=== PATIENT | female | born 1985 | race Caucasian/White ===

== ENCOUNTER 2019-11-29 09:16 | Emergency (ER) | payer OTHER, SELFPAY ==
[2019-11-29 09:23] VITALS: BP 116/70; PULSE 105; RESP 16; TEMP 38.2; O2SAT 100
--- NOTE | 2019-11-29 09:50 | ED.URI ---
HPI - URI/Sore Throat General Chief Complaint: Upper Respiratory Infection Stated Complaint: FEVER/CHILLS/CHEST CONGESTION/ROCA/SOB Time Seen by Provider: 11/29/19 09:45 Source: patient and RN notes reviewed Mode of arrival: ambulatory Limitations: no limitations History of Present Illness HPI Narrative: 34-year-old female presents with concern for fever, cough, productive cough, nasal congestion, mild sore throat, general malaise for 4 days. Reports taking [id number] medications for relief. MD elicited complaint: cough Related Data Allergies Allergy/AdvReac Type Severity Reaction Status Date / Time peanut oil Allergy Severe anaphylaxis Verified 10/05/18 15:12 peas Allergy Mild SCRATCHY Verified 09/13/18 13:41 THROAT egg Allergy Unknown Verified 05/16/18 14:29 measles, mumps, and rubella Allergy Unknown unk Verified 10/05/18 15:12 vaccine peanut Allergy Unknown Asthma Verified 10/15/17 21:20 Sulfa (Sulfonamide Allergy Unknown Skin Verified 10/15/17 21:20 Antibiotics) Reaction NUTS Allergy Severe Anaphylactic Uncoded 09/13/18 13:38 Shock Lentils Allergy Mild ITCHING Uncoded 09/13/18 13:38 THROAT MMR VACCINE Allergy Unknown Unknown Uncoded 09/13/18 13:41 Review of Systems Review of Systems: Narrative: CONSTITUTIONAL: Reports fatigue, malaise, chills, sweats, or fever. EYES: Denies visual changes, redness, or discharge. ENT: Reports rhinorrhea, congestion, sore throat. Denies sinus pain, otalgia. CARDIOVASCULAR: Denies chest pain, palpitations, or edema. RESPIRATORY: Reports productive cough. Denies dyspnea. GASTROINTESTINAL: Denies abdominal pain, nausea, vomiting, diarrhea SKIN: Denies rash or itching. MUSCULOSKELETAL: Reports myalgia. NEUROLOGIC: Reports headache. All systems reviewed & are unremarkable except as noted in HPI and below PMFSH Family History Family History (Updated 05/27/18 @ 09:46 by DOCTOR UNKNOWN) Grandparent Family history of lung cancer Family history of malignant neoplasm of brain Sibling Family history of mental disorder Father Family history of cardiovascular disease Other Family history of malignant neoplasm of breast Social History Social History Smoking status: Never smoker Alcohol intake: never Comments At time of signature, agree with nursing past medical, surgical, social and family history. There is no relevant family history pertinent to the presenting complaint Exam Narrative: Exam Narrative: GENERAL: Well-appearing, well-nourished, and in no acute distress. HEAD: Normocephalic EYES: PERRLA, conjunctivae clear ENT: Nares clear, turbinates edematous and erythematous, clear discharge. Mucous membranes moist. TM pearly gould with dull light reflex bilaterally; no tragal tenderness. Oropharynx not erythematous without lesions. Tonsils not enlarged and without exudate, no drooling, no hoarseness, no trismus. NECK: Supple. No lymphadenopathy CHEST: Clear to auscultation, breath sounds equal. No wheezing, rhonchi, rales, or stridor. No respiratory distress, speaks in full sentences. Cough noted HEART: Regular rate and rhythm. No murmur heard. Normal peripheral pulses. SKIN: Warm, dry, no rash. NEURO: Alert and oriented x3. PSYCH: Normal mood and affect Course Course Emergency Course: Patient is aware of diagnosis, understands and agrees to treatment plan. Anticipatory guidance given. Patient agrees to follow-up as directed and is aware of reasons to seek care at the emergency department. Portions of this record may have been created with voice recognition software Vital Signs Vital signs: Vital Signs Temperature 100.7 F H 11/29/19 09:23 Pulse Rate 105 H 11/29/19 09:23 Respiratory Rate 16 11/29/19 09:23 Blood Pressure 116/70 11/29/19 09:23 Pulse Oximetry 100 11/29/19 09:23 Temperature 100.7 F H 11/29/19 09:23 Pulse Rate 105 H 11/29/19 09:23 Respiratory Rate 16 11/29/19 09:23 Blood Pressure 116/70 11/29/19 09:23
== END 2019-11-29 10:02 | disposition home or self-care (01) ==
PROVIDERS: Emergency Provider Nurse Practitioner; PCP Family Medicine
DX: R50.9 Fever, unspecified (principal); R05 Cough; J02.9 Acute pharyngitis, unspecified; R53.81 Other malaise; R09.81 Nasal congestion; J45.909 Unspecified asthma, uncomplicated
CPT/HCPCS: 99213; G0463

== ENCOUNTER 2021-12-20 18:54 | Emergency (ER) | payer OTHER, SELFPAY ==
[2021-12-20] VITALS (42 sets, daily range): BP systolic 91–144; BP diastolic 49–98; PULSE 57–108; RESP 9–28; TEMP 37; O2SAT 95–100
--- NOTE | 2021-12-20 19:11 | ED.ALLEREA ---
HPI - Allergic Reaction General Chief complaint: Allergic Reaction Stated complaint: allergic reaction Time Seen by Provider: 12/20/21 19:04 Source: RN notes reviewed History of Present Illness HPI narrative: Patient presents emergency room from home for allergic reaction. Patient that she is allergic to peanuts and ate a grilled cheese sandwich to have peanut butter on it approximately 15 minutes ago. She states that she began to feel like her throat was itching was rhinorrhea and a feeling of shortness of breath and came to the emergency department she states she has an EpiPen but she did not take it she denies any fevers or chills chest pain or abdominal pain denies any other symptoms at this time Related Data Allergies Allergy/AdvReac Type Severity Reaction Status Date / Time peanut oil Allergy Severe anaphylaxis Verified 10/05/18 15:12 peas Allergy Mild SCRATCHY Verified 09/13/18 13:41 THROAT egg Allergy Unknown Verified 05/16/18 14:29 measles, mumps, and rubella Allergy Unknown unk Verified 10/05/18 15:12 vaccine peanut Allergy Unknown Asthma Verified 10/15/17 21:20 Sulfa (Sulfonamide Allergy Unknown Skin Verified 10/15/17 21:20 Antibiotics) Reaction NUTS Allergy Severe Anaphylactic Uncoded 09/13/18 13:38 Shock Lentils Allergy Mild ITCHING Uncoded 09/13/18 13:38 THROAT MMR VACCINE Allergy Unknown Unknown Uncoded 09/13/18 13:41 Review of Systems Review of Systems: Gen.: Denies fevers or chills ENT: Feeling of throat itching Respiratory: Ports shortness of breath CV: Denies chest pain or palpitations GI: Denies abdominal pain nausea, emesis or diarrhea Musculoskeletal: Denies back pain or muscle pain Neuro: Denies numbness, tingling, weakness or focal weakness Skin: Denies rash Except as documented, all other systems reviewed and negative PMF Past Medical History Medical History (Updated 12/21/21 @ 00:36 by Dickson Loya DO) Moderate persistent asthma, uncomplicated Family History Family History (Updated 05/27/18 @ 09:46 by DOCTOR UNKNOWN) Grandparent Family history of lung cancer Family history of malignant neoplasm of brain Sibling Family history of mental disorder Father Family history of cardiovascular disease Other Family history of malignant neoplasm of breast Social History Social History Smoking status: Never smoker Alcohol intake: never Exam Narrative: APPEARANCE: Anxious no acute distress, nontoxic, resting in bed EYES: EOMI HEENT: Normocephalic, atraumatic, clear rhinorrhea bilateral naris oromucosa moist no erythema or exudate posterior pharynx tolerating own secretions voice normal RESPIRATORY: No respiratory distress Clear to auscultation bilaterally with no rhonchi wheezing or rales. CARDIOVASCULAR: Regular rate and rhythm without murmurs rubs or gallops. ABDOMINAL: Soft, nontender, nondistended, no rebound or guarding MUSCULOSKELETAl: Moves all extremities. No clubbing, cyanosis or edema. NEURO: Awake and alert. Following commands, speech normal, no focal deficits SKIN:: Warm, dry. No rashes lesions or abrasions PSYCHIATRIC: Anxious in appearance Course Course Emergency Course: Patient is feeling much better has been monitoring emergency department for 5 hours will discharge at this time Discussed with patient results of workup and diagnosis. Discussed need for follow-up with primary care, proper use of medication, and reasons to return to the emergency department. Patient understands and agrees to current treatment plan patient states she has an EpiPen at home Vital Signs Vital signs: Vital Signs Temperature 98.6 F 12/20/21 18:59 Pulse Rate 103 H 12/20/21 18:59 Respiratory Rate 14 12/20/21 18:59 Blood Pressure 144/98 H 12/20/21 18:59 Pulse Oximetry 100 12/20/21 18:59 Temperature 98.6 F 12/20/21 18:59 Pulse Rate 71 12/20/21 22:16 Respiratory Rate 21 H
[2021-12-20] MEDS: EPINEPHrine HCL INJ 1 MG/ML AMPUL 0.3 MG IM (19:13)
[2021-12-20] MEDS: methylPREDNISolone SOD SUCC 125 MG VIAL IV PUSH (19:13)
[2021-12-20] MEDS: diphenhydrAMINE HCl INJ 50 MG/ML VIAL 25 MG IV PUSH (19:14)
[2021-12-20] MEDS: FAMOTIDINE 20 MG/2 ML VIAL IV PUSH (19:14)
[2021-12-20] MEDS: ONDANSETRON INJ 4 MG/2 ML VIAL IV PUSH (19:18)
[2021-12-21] VITALS: PULSE 60; RESP 18; O2SAT 99
[2021-12-21 00:01] VITALS: BP 110/72; PULSE 65; RESP 16; O2SAT 99
[2021-12-21 00:16] VITALS: BP 112/77; PULSE 73; RESP 18; O2SAT 99
[2021-12-21 00:30] VITALS: PULSE 72; RESP 14; O2SAT 99
[2021-12-21 00:31] VITALS: BP 116/71; PULSE 68; RESP 16; O2SAT 99
[2021-12-21 00:46] VITALS: BP 109/55; PULSE 64; RESP 17; O2SAT 99
== END 2021-12-21 00:55 | disposition home or self-care (01) ==
PROVIDERS: Emergency Provider Emergency Medicine; PCP Internal Medicine
DX: T78.1XXA Other adverse food reactions, not elsewhere classified, initial encounter (principal); R06.02 Shortness of breath; J34.89 Other specified disorders of nose and nasal sinuses; R09.89 Other specified symptoms and signs involving the circulatory and respiratory systems; J45.40 Moderate persistent asthma, uncomplicated; Z91.010 Allergy to peanuts
CPT/HCPCS: 96372; 96374; 96375; 99284; J0171; J1200; J2405; J2930

== ENCOUNTER 2024-05-03 08:01 | Emergency (ER) | payer BC, SELFPAY ==
--- NOTE | 2024-05-03 08:04 | ED.ABDPAIN ---
HPI - Abdominal Pain General Stated Complaint: ABD PAIN Time Seen by Provider: 05/03/24 08:14 Source: patient and RN notes reviewed Mode of arrival: ambulatory Limitations: no limitations History of Present Illness HPI narrative: 38-year-old female presents concern for bilateral lower abdominal pain that started yesterday morning. Reports that worsened overnight. She reports pain worsens when she moves in certain ways and when she walks. She reports she has had small amount of diarrhea. Her last normal bowel movement was yesterday. She is not vomiting but is nauseated. She denies urine frequency, urgency, flank pain. Her last menstrual period was 3 weeks ago. She denies body aches, chills, sweats. Reports low-grade temperature MD elicited complaint: abdominal pain Related Data Allergies Allergy/AdvReac Type Severity Reaction Status Date / Time peanut oil Allergy Severe anaphylaxis Verified 05/03/24 08:14 peas Allergy Mild SCRATCHY Verified 05/03/24 08:14 THROAT egg Allergy Unknown Unknown Verified 05/03/24 08:14 measles, mumps, and rubella Allergy Unknown unk Verified 05/03/24 08:14 vaccine peanut Allergy Unknown Asthma Verified 05/03/24 08:14 Sulfa (Sulfonamide Allergy Unknown Skin Verified 05/03/24 08:14 Antibiotics) Reaction NUTS Allergy Severe Anaphylactic Uncoded 05/03/24 08:14 Shock Lentils Allergy Mild ITCHING Uncoded 05/03/24 08:14 THROAT MMR VACCINE Allergy Unknown Unknown Uncoded 05/03/24 08:14 Review of Systems Review of Systems: CONSTITUTIONAL: Denies malaise, chills, sweats. Reports low-grade fever. ENT: Denies rhinorrhea, congestion, sinus pain, otalgia or sore throat. CARDIOVASCULAR: Denies chest pain, palpitations, or edema. RESPIRATORY: Denies cough or dyspnea. GASTROINTESTINAL: Reports abdominal pain, nausea, diarrhea. Denies vomiting GENITOURINARY: Denies dysuria or hematuria. MUSCULOSKELETAL: Denies myalgia. NEUROLOGIC: Denies headache. All systems reviewed & are unremarkable except as noted in HPI and below PMFSH Past Medical History Medical History (Updated 05/03/24 @ 08:26 by Diana Poon NP) Moderate persistent asthma, uncomplicated Family History Family History (Updated 05/27/18 @ 09:46 by DOCTOR UNKNOWN) Grandparent Family history of lung cancer Family history of malignant neoplasm of brain Sibling Family history of mental disorder Father Family history of cardiovascular disease Other Family history of malignant neoplasm of breast Social History Social History Smoking status: Never smoker Alcohol intake: never Comments At time of signature, agree with nursing past medical, surgical, social and family history. There is no relevant family history pertinent to the presenting complaint Exam Narrative: GENERAL: Well-appearing, well-nourished, and in no acute distress. HEAD: Normocephalic, atraumatic. EYES: PERRLA, conjunctivae clear, and EOMI. ENT: Nares clear. Mucous membranes moist. NECK: Supple. No lymphadenopathy CHEST: Speaks in full sentences. No respiratory distress. HEART: Regular rate and rhythm. ABDOMEN: Soft, flat, nondistended. Left lower quadrant tenderness. No guarding, rebound tenderness, or rigidity. No pulsatile masses. Bowel sounds present in all four quadrants. No organomegaly. SKIN: Warm no rash. Clammy skin NEURO: Alert and oriented x3. PSYCH: Normal mood and affect Course Course Emergency Course: Patient is aware of, understands and agrees to be transferred to the emergency room. Anticipatory guidance given. Patient agrees to proceed directly to the emergency department. Portions of this record may have been created with voice recognition software Level of Care: Express Care Visit Vital Signs Vital signs: Reviewed. Transfer Transfered to: [facility] Transportation: Other (private vehicle) Transfer rationale: Abdominal pain Acc
[2024-05-03 08:07] VITALS: BP 121/73; PULSE 96; RESP 16; TEMP 37.4; O2SAT 100
== END 2024-05-03 08:25 | disposition short-term general hospital (02) ==
PROVIDERS: Emergency Provider Nurse Practitioner; PCP Internal Medicine
DX: R10.32 Left lower quadrant pain (principal); J45.909 Unspecified asthma, uncomplicated
CPT/HCPCS: 99212; G0463

== ENCOUNTER 2024-05-03 08:46 | Emergency (ER) | payer BC, SELFPAY ==
--- NOTE | ~2024-05-03 | CT_ITS ---
CT abdomen pelvis w con Ordering provider: Oscar Greer III DO History: 38 years Female with . llq abd pain . Comparison: None. Technique: CT abdomen and pelvis with IV and without oral contrast. Automated exposure control and it erative reconstruction technique were employed. The dose-length product was 297.76 mGy-cm. 100 mL Omn ipaque 350 was given IV. Findings: VISUALIZED LOWER CHEST: Normal. UPPER ABDOMINAL ORGANS: Liver: Hepatomegaly. Gallbladder: Normal. Spleen: Normal. Stomach/duodenum: Normal. Pancreas: Normal. Adrenals: Normal. Kidneys: Normal. PELVIC ORGANS: The bladder is normal. Uterus: Retroverted. Hyperdense area seen in the right ovary s uggestive of ruptured follicle. Hypodense area seen in the left side of the uterus which may be fibro id measuring 1.1 cm. BOWEL AND MESENTERY: Colon: Thickened wall of the sigmoid colon with surrounding fat stranding suggestive of diverticuliti s. Colitis is also possible. Follow-up advised with sigmoidoscopy to exclude a mass. Normal appendix. Small Bowel: Normal. No obstruction. Peritoneum/mesentery: No free air. Fluid is seen in the pelvis No mesenteric lymphadenopathy. RETROPERITONEUM: Normal aorta. . Para-aortic lymph nodes are noted with the largest measures 1.5 cm . MUSCULOSKELETAL: Superficial soft tissues: The superficial soft tissues are normal. Bones: Age appropriate degenerative changes of the spine. IMPRESSION: 1. Diverticulitis versus colitis of the sigmoid colon. Follow-up sigmoidoscopy is advised to exclude a mass. 2. Free fluid seen in the pelvis. 3. Hepatomegaly. 4. Slightly enlarged para-aortic lymph nodes with the largest measuring 1.5 cm. Reviewed, dictated and finalized at location A. IMPRESSION: 1. Diverticulitis versus colitis of the sigmoid colon. Follow-up sigmoidoscopy is advised to exclude a mass. 2. Free fluid seen in the pelvis. 3. Hepatomegaly. 4. Slightly enlarged para-aortic lymph nodes with the largest measuring 1.5 cm .
[2024-05-03 08:55] VITALS: BP 122/79; PULSE 94; RESP 16; TEMP 36.9; O2SAT 100
[2024-05-03 09:14] LABS: Basophils Absolute Auto 0.1 K/mm3 (0.0-0.1); Basophils Percent Auto 0.5 % (0.2-1.2); Eosinophils Absolute Auto 0.2 K/mm3 (0-0.3); Eosinophils Percent Auto 1.5 % (0-4.4); Hematocrit 41.1 % (37.0-47.0); Hemoglobin 14.4 g/dL (12.0-15.0); Immature Granulocyte Absolute 0.03 K/mm3 (0.00-0.031); Immature Granulocyte Percent A 0.2 % (0-0.5); Lymphocytes Absolute Auto 1.38 K/mm3 (0.9-3.2); Lymphocytes Percent Auto 11.1 % (18.3-44.2); Mean Corpuscular Hemoglobin 31.8 pg (26-34); Mean Corpuscular Volume 90.7 fl (80-100); Mean Platelet Volume 9.7 fl (7.4-10.4); Monocytes Absolute Auto 1.3 K/mm3 (0.1-0.6); Monocytes Percent Auto 10.5 % (2.6-8.5); Neutrophils Absolute Auto 9.4 K/mm3 (1.3-6.7); Neutrophils Percent Auto 76.2 % (45.5-73.1); Platelet Count Result 248 k/mm3 (150-375); Red Blood Count 4.53 M/mm3 (4.2-5.4); White Blood Count 12.4 K/mm3 (4.5-10.0)
[2024-05-03 09:25] LABS: Partial Thromboplastin Time 26.6 Seconds (22.3-36.8); Prothrombin Time 13.7 Seconds (11.1-14.7)
[2024-05-03 09:28] LABS: Appearance Urine Cloudy (Clear); Bacteria Urine 4+ /hpf; Bilirubin Urine Negative (Negative); Blood Urine Negative (Negative); Color Urine Dark Yellow (Yellow); Glucose Urine UA Negative (Negative); Ketones Urine Trace mg/dL (Negative); Leukocyte Esterase Ur 1+ LEU/UL (Negative); Need Manual Microscopic Reviewed; Nitrate Urine Negative (Negative); Non Pathogenic Casts 0-2; Protein Urine Trace mg/dL (Negative); Specific Grav Ur 1.022 (1.001-1.035); Squamous Epithelial Cell Urine Moderate /hpf (Few); WBC Urine 21-50 /hpf (0-3); pH Urine 5.5 (5.0-9.0)
[2024-05-03 09:30] LABS: Alanine Aminotransferase 12 U/L (6-35); Albumin Level 4.6 g/dL (3.5-5.1); Alkaline Phosphatase 68 U/L (38-126); Anion Gap 8 mmol/L (4-12); Aspartate Amino Transferase 21 U/L (14-36); Bilirubin,Total 2.4 mg/dL (0.2-1.3); Blood Urea Nitrogen 7 mg/dL (7-17); Calcium 8.7 mg/dL (8.4-10.2); Carbon Dioxide 26 mmol/L (22-30); Chloride 102 mmol/L (98-107); Estimated CRCL calculation 73 ml/min; Estimated Glomerular Filt Rate > 60; Glucose 104 mg/dL (65-110); Potassium 3.7 mmol/L (3.4-5.0); Sodium 136 mmol/L (137-145)
[2024-05-03 09:32] LABS: Add Urine Microscopic? YES
[2024-05-03 10:30] VITALS: BP 101/66; PULSE 78; RESP 16; O2SAT 99
--- NOTE | 2024-05-03 10:45 | ED.ABDPAIN ---
HPI - Abdominal Pain General Chief Complaint: Abdominal Pain Stated Complaint: abd pain Time Seen by Provider: 05/03/24 08:50 History of Present Illness HPI narrative: Pt presents with LLQ abdominal pain and low grade fever since last night. Pt denies dysuria or frequency or flank pain. Pt is nauseated but not vomiting. Bowel habits normal no melena or hematochezia. Pt went to [facility] and was directed to ED. Related Data Allergies Allergy/AdvReac Type Severity Reaction Status Date / Time peanut oil Allergy Severe anaphylaxis Verified 05/03/24 08:14 peas Allergy Mild SCRATCHY Verified 05/03/24 08:14 THROAT egg Allergy Unknown Unknown Verified 05/03/24 08:14 measles, mumps, and rubella Allergy Unknown unk Verified 05/03/24 08:14 vaccine peanut Allergy Unknown Asthma Verified 05/03/24 08:14 Sulfa (Sulfonamide Allergy Unknown Skin Verified 05/03/24 08:14 Antibiotics) Reaction NUTS Allergy Severe Anaphylactic Uncoded 05/03/24 08:14 Shock Lentils Allergy Mild ITCHING Uncoded 05/03/24 08:14 THROAT MMR VACCINE Allergy Unknown Unknown Uncoded 05/03/24 08:14 Review of Systems Review of Systems: All systems reviewed & are unremarkable except as noted in HPI and below PMFSH Past Medical History Medical History (Updated 05/03/24 @ 11:12 by Oscar Greer III, ) Moderate persistent asthma, uncomplicated Family History Family History (Updated 05/27/18 @ 09:46 by DOCTOR UNKNOWN) Grandparent Family history of lung cancer Family history of malignant neoplasm of brain Sibling Family history of mental disorder Father Family history of cardiovascular disease Other Family history of malignant neoplasm of breast Social History Social History Smoking status: Never smoker Alcohol intake: never Exam Const: General: healthy appearing and no acute distress Nutritional Appearance: well nourished Orientation/consciousness: patient oriented x3 Limitations: no limitations Resp: Effort & Inspection: normal respiratory effort Auscultation: clear to auscultation bilaterally Cardio: Rate: regular rate Rhythm: regular rhythm GI: GI Palp: Yes Soft to palpation and Yes Tenderness to palpation present (GI) (LLQ and suprapubic) Auscultation: normal bowel sounds : General: Yes no CVA tenderness Back/Spine/Pelvis: Back: no CVA tenderness Skin: General skin exam: normal color Rashes: no rashes Wounds: no wounds Neuro: General: patient oriented x3, moves all extremities, no meningeal signs, no focal motor deficits and CN's II-XI intact bilaterally Speech: normal speech Extrem: General: normal to inspection and no clubbing, cyanosis or edema Psych: Mental Status: mental status grossly normal Affect: normal affect Attitude: cooperative Course Vital Signs Vital signs: Vital Signs Temperature 98.5 F 05/03/24 08:55 Pulse Rate 94 05/03/24 08:55 Respiratory Rate 16 05/03/24 08:55 Blood Pressure 122/79 05/03/24 08:55 Pulse Oximetry 100 05/03/24 08:55 Oxygen Delivery Room Air 05/03/24 08:55 Temperature 99.0 F 05/03/24 11:27 Pulse Rate 79 05/03/24 11:27 Respiratory Rate 17 05/03/24 11:27 Blood Pressure 117/77 05/03/24 11:27 Pulse Oximetry 100 05/03/24 11:27 Oxygen Delivery Room Air 05/03/24 08:55 MDM - Abdominal Pain MDM Narrative Medical decision making narrative: Pt presents with LLQ pain and suprapubic pain since last night and low greade temp. will need labs and CT of abd pelvis. Pt does not want pain meds now. Pt has diverticulitis on CT vs colitis more likely the former given symptoms. Pt wants to go home on antibiotics. Pt needs to follow up with GI to get scoped. Will give Dr Jimenez contact for FU Differential Diagnosis Differential diagnosis: Likely abdominal pain, acute appendicitis, constipation, diverticulitis, endometriosis, small bowel obstruction
[2024-05-03 11:27] VITALS: BP 117/77; PULSE 79; RESP 17; TEMP 37.2; O2SAT 100
[2024-05-03 17:04] LABS: BEDSIDEPREGUCG Negative
== END 2024-05-03 11:28 | disposition home or self-care (01) ==
PROVIDERS: Emergency Provider Emergency Medicine; PCP Internal Medicine
DX: K57.32 Diverticulitis of large intestine without perforation or abscess without bleeding (principal); J45.40 Moderate persistent asthma, uncomplicated; R16.0 Hepatomegaly, not elsewhere classified
CPT/HCPCS: 36415; 74177; 80053; 81001; 81025; 85025; 85610; 85730; 87086; 99284; Q9967